=== PATIENT | male | born 1965 | race Caucasian/White ===

== ENCOUNTER 2020-02-04 08:29 | Emergency (ER) | payer SELFPAY ==
[~2020-02-04] VITALS: Ht 177.8 cm; Wt 61.2 kg
--- NOTE | 2020-02-04 08:38 | NUR ---
BIB [facility] FROM [facility],WITNESSED SEIZURE WHILE SMOKING. BLOOD SUGAR 91. PT ALERT AND VERBALLY RESPONSIVE. ABLE TO FOLLOW COMMANDS. PER PT STATES HE DIDNT HAD SEIZURE BUT +SEIZURE A MONTH AGO. SEIZURE PRECAUTION PROVIDED. AWAITING FOR MD GALEANA
--- NOTE | 2020-02-04 08:41 | NUR ---
SEEN AND EVALUATED BY MD AT BEDSIDE
[2020-02-04] MEDS ORDERED: CHLORDIAZEPOXIDE HCL 25 MG CAPSULE ONE ×2 (08:49→08:58)
[2020-02-04] MEDS ORDERED: CHLORDIAZEPOXIDE HCL 25 MG CAPSULE PO ONE (09:00)
[2020-02-04 09:30] LABS: BASOPHILS % (AUTO) 0.7 % (0.0-2.0); EOSINOPHILS % (AUTO) 0.5 % (0.0-6.0); HEMATOCRIT 49 % (39-51); HEMOGLOBIN 16.7 g/dL (13.5-17.5); LYMPHOCYTES # (AUTO) 0.5 /CMM (0.8-4.8); LYMPHOCYTES % (AUTO) 11.1 % (20.0-44.0); MEAN CORPUSCULAR HGB CONC 34 g/dl (31.0-36.0); MEAN CORPUSCULAR VOLUME 103 fL (80-96); MONOCYTES # (AUTO) 0.5 /CMM (0.1-1.30); MONOCYTES % (AUTO) 9.5 % (2.0-12.0); NEUTROPHILS # (AUTO) 3.8 /CMM (1.8-8.9); NEUTROPHILS % (AUTO) 78.2 % (43.0-81.0); PLATELET COUNT (AUTO) 87 /CMM (150-450); WHITE BLOOD COUNT (AUTO) 4.8 K/uL (4.3-11.0)
[2020-02-04 09:44] LABS: CALCIUM, SERUM 9.7 mg/dL (8.5-10.1); CARBON DIOXIDE 25 mmol/L (21-32); CHLORIDE 90 mmol/L (98-107); CREATININE 1.2 mg/dL (0.6-1.3); GLUCOSE 149 mg/dL (74-106); SODIUM SERUM 128 mmol/L (136-145); UREA NITROGEN, BLOOD 9 mg/dL (7-18)
[2020-02-04 09:47] LABS: ALCOHOL, BLOOD < 3 mg/dL (0-0)
--- NOTE | 2020-02-04 10:05 | NUR ---
IV removed. Catheter intact and site benign. Pressure and 4x4 applied to site. No bleeding noted.
--- NOTE | 2020-02-04 10:09 | NUR ---
Patient given written and verbal discharge instructions. Patient verbalizes understanding of instructions. Patient is ambulatory with steady gait. Refuses offer of group home placement. Patient given list of available shelters in surrounding area. All belongings with the patient, name band removed. In proper clothing upon discharge.
[2020-02-04 10:10] VITALS: BP 154/99
[2020-02-04 11:30] LABS: BASOPHILS % (MANUAL) 0 % (0.0-2.0); EOSINOPHILS % (MANUAL) 0 % (0-4); LYMPHOCYTES % (MANUAL) 11 % (16-48); MONOCYTES % (MANUAL) 1 % (0-11.0); NEUTROPHILS % (MANUAL) 78 (42-76); REACTIVE LYMPHOCYTES 10 % (0-0)
== END 2020-02-04 10:11 | disposition home or self-care (01) ==
LOC: ER 08:31
DX: R56.9 Unspecified convulsions (principal); F10.239 Alcohol dependence with withdrawal, unspecified; Z60.2 Problems related to living alone; Y90.0 Blood alcohol level of less than 20 mg/100 ml
CPT/HCPCS: 36415; 80048-TC; 85025-TC; G0480

== ENCOUNTER 2020-08-05 10:31 | Emergency (ER) | payer SELFPAY ==
[~2020-08-05] VITALS: Ht 188 cm; Wt 64.9 kg
--- NOTE | 2020-08-05 10:39 | NUR ---
BIB [facility],LACERATION ABOVE RIGHT EYEBROW,S/P GLF,ETOH,NO LOC. THE PATIENT IS ALERT AND ORIENTED X3. DENIES PAIN. IN ROOM AIR AND DENIES SOB. RESPIRATION REGULAR AND UNLABORED. WILL CONTINUE TO MONITOR THE PATIENT.
[2020-08-05] MEDS ORDERED: LIDOCAINE 0.5%-EPI 1:200,000 50 ML VIAL ONE (10:57)
[2020-08-05] MEDS ORDERED: LIDOCAINE 1%-EPI 1:100,000 20 ML VIAL TP ONE (11:00)
[2020-08-05] MEDS ORDERED: TDAP [DIPH/PERTUSSIS/TET] 0.5 ML VIAL IM ONE ×2 (11:00→11:17)
[2020-08-05 12:14] VITALS: BP 131/88
--- NOTE | 2020-08-05 12:14 | NUR ---
Patient discharged to home in stable condition. Written and verbal after care instructions given. Patient verbalizes understanding of instruction. The patient left ER in stable condition.
== END 2020-08-05 12:15 | disposition home or self-care (01) ==
LOC: ER 10:36
DX: S01.81XA Laceration without foreign body of other part of head, initial encounter (principal); Z60.2 Problems related to living alone; W01.0XXA Fall on same level from slipping, tripping and stumbling without subsequent striking against object, initial encounter; Y93.89 Activity, other specified; Y92.89 Other specified places as the place of occurrence of the external cause; Y99.8 Other external cause status
CPT/HCPCS: 12054; 70450; 70486; 90471; 90715; 99285; J3490